=== PATIENT | male | born 1940 | race American Indian/Alaskan Native ===

== ENCOUNTER 2021-10-09 23:20 | Emergency (ER) | payer MEDICARE ==
[2021-10-10 05:38] LABS: Basophils % (Auto) 0.8 % (0.0-1.8); Eosinophils % (Auto) 0.1 % (0.0-4.3); Hematocrit 44.1 % (35.5-45.6); Hemoglobin 14.7 gm/dl (11.8-15.2); Lymphocytes # (Auto) 1.2 K/mm3 (1.2-5.4); Lymphocytes % (Auto) 22.2 % (13.4-35.0); Mean Corpuscular HGB Conc 33 % (32-34); Mean Corpuscular Volume 88 fl (84-94); Monocytes # (Auto) 0.5 K/mm3 (0.0-0.8); Monocytes % (Auto) 9.4 % (0.0-7.3); Platelet Count 186 K/mm3 (140-440); Red Cell Distribution Width 17.9 % (13.2-15.2)
--- NOTE | 2021-10-10 05:45 | XRay Report ---
Chest radiograph, single view INDICATION / CLINICAL INFORMATION: Cough. COMPARISON: 07/01/2008 FINDINGS: SUPPORT DEVICES: None. HEART /PULMONARY VASCULATURE: No significant abnormality. LUNGS / PLEURA: No significant pulmonary or pleural abnormality. No pneumothorax. ADDITIONAL FINDINGS: No significant additional findings. IMPRESSION: 1. No acute findings. Signer Name: Adan Nair MD Signed: 10/10/2021 5:40 AM Workstation Name: [id number]
[2021-10-10 06:00] LABS: Calcium 8.8 mg/dL (8.4-10.2)
--- NOTE | 2021-10-10 06:30 | Emergency Department Report ---
ED General Adult HPI - General Chief complaint: Extremity Injury, Lower Stated complaint: GOUT FLARE, COLD LIKE SYMPTOMS Time Seen by Provider: 10/10/21 06:02 Source: patient, EMS Mode of arrival: Stretcher Limitations: No Limitations - History of Present Illness Initial comments: 81-year-old male presents to the hospital complaining of bilateral foot s welling, productive cough, and mild shortness of for the past 1 week. Shortness of breath worse with exertion. Patient denies chest pain, fever, or calf tenderness. Patient is oriented to self, knows he is in a hospital, but states the year is 1999. He lives with his granddaughter. He initially presented with a complaint of gout flare to both feet but denies pain to his feet. Patient also reports a history of hypertension who presents with a Gamble which he has used for 2 to 3 years due to urinary retention. This is patient's first visit here with no previous medical record for review. Pt typically is seen at [facility] Granddaughter states that patient's pulse ox has been normal at home. She suspects that he gets excited and hyperventilates. 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 Full range of motion without pain. No areas of warmth or tenderness. 1+ bilateral DP pulses Neuro: Alert O x 2, no facial asymmetry, speech clear, no gross motor sensory deficit Psych: Appropriate behavior Skin: No rash ED Course Vital Signs 10/10/21 10/10/21 10/10/21 00:17 04:09 05:28 Temperature 98.2 F Pulse Rate 78 70 Respiratory 16 15 Rate Blood Pressure 124/74 115/78 [Right] O2 Sat by Pulse 99 95 98 Oximetry ED Medical Decision Making - Lab Data Result diagrams: 10/10/21 05:26 10/10/21 05:26 Lab Results 10/10/21 10/10/21 10/10/21 Range/Units 05:26 05:26 06:31 WBC 5.6 (4.5-11.0) K/mm3 RBC 5.00 (3.65-5.03) M/mm3 Hgb 14.7 (11.8-15.2) gm/dl Hct 44.1 (35.5-45.6) % MCV 88 (84-94) fl MCH 30 (28-32) pg MCHC 33 (32-34) % RDW 17.9 H (13.2-15.2) % Plt Count 186 (140-440) K/mm3 Lymph % (Auto) 22.2 (13.4-35.0) % Raw[place]ins % (Auto) 9.4 H (0.0-7.3) % Eos % (Auto) 0.1 (0.0-4.3) % Baso % (Auto) 0.8 (0.0-1.8) % Lymph # (Auto) 1.2 (1.2-5.4) K/mm3 [place]ins # (Auto) 0.5 (0.0-0.8) K/mm3 Eos # (Auto) 0.0 (0.0-0.4) K/mm3 Baso # (Auto) 0.0 (0.0-0.1) K/mm3 Seg Neutrophils % 67.5 (40.0-70.0) % Seg Neutrophils # 3.8 (1.8-7.7) K/mm3 Sodium 137 (137-145) mmol/L Potassium 4.9 (3.6-5.0) mmol/L Chloride 103.9 (98-107) mmol/L Carbon Dioxide 19 L (22-30) mmol/L Anion Gap 19 mmol/L BUN 32 H (9-20) mg/dL Creatinine 1.8 H (0.8-1.3) mg/dL Estimated GFR 44 ml/min BUN/Creatinine Ratio 18 % Glucose 113 H (75-100) mg/dL Calcium 8.8 (8.4-10.2) mg/dL NT-Pro-B Natriuret Pep 3413 H (0-900) pg/mL - Radiology Data Radiology results: report reviewed Chest radiograph, single view INDICATION / CLINICAL INFORMATION: Cough. COMPARISON: 07/01/2008 FINDINGS: SUPPORT DEVICES: None. HEART /PULMONARY VASCULATURE: No significant abnormality. LUNGS / PLEURA: No significant pulmonary or pleural abnormality. No pneumothorax. ADDITIONAL FINDINGS: No significant additional findings. IMPRESSION: 1. No acute findings. - Medical Decision Making 81-year-old male presents to the hospital planing of cough and URI symptoms. No noticeable coughing in the ED. Chest x-ray normal. Normal vital signs including pulse oximetry. Patient has bilateral pedal and ankle edema which is chronic. There are no calf tenderness or calf edema symptoms. I do not suspect that patient has an acute gout attack since he does not have pain, warmth, or erythema to his extremities. bnp elevation noted without pulmonary edema. Gamble catheter exchange as per daughter's request. Mild renal insufficiency noted with unknown baseline. Outpatient follow-up with nephrology will be recommended Critical Care Time: No Critical care attestation.: If time is entered above; I have spent that time in minutes in the direct care of this critically ill patient, excluding procedure time. ED Disposition Clinical Impression: Pedal edema, URI (upper respiratory infection), Renal insufficiency, H/O urinary retention Disposition: 01 HOME / SELF CARE / HOMELESS Is pt being admited?: No Does the pt Need Aspirin: No Condition: Stable Instructions: Edema, [id number], Upper Respiratory Infection, Adult, Food Basics for Chronic Kidney Disease Additional Instructions: Take the medication as prescribed. Follow-up with your doctor or doctor/clinic provided. Return if symptoms worsen as indicated by your discharge instructions. Referrals: PRIMARY CARE, [Primary Care Provider] - 3-5 Days DENISSE FOSTER MD [Staff Physician] - 3-5 Days (Nephrology/kidney specialist) Time of Disposition: 09:43
[2021-10-10 10:54] VITALS: BP 116/68
== END 2021-10-10 10:54 | disposition home or self-care (01) ==
LOC: ED 10-10 08:11
DX: R60.9 Edema, unspecified (principal); J06.9 Acute upper respiratory infection, unspecified; N28.9 Disorder of kidney and ureter, unspecified; R33.9 Retention of urine, unspecified; I10 Essential (primary) hypertension
CPT/HCPCS: 36415; 51702; 71045; 80048; 83880; 85025; 99284